=== PATIENT | male | born 1975 | race Caucasian/White ===

== ENCOUNTER 2020-01-02 20:24 | Emergency (ER) | payer OTHER ==
[2020-01-02] MEDS ORDERED: LORazepam 2 MG/ML SDV IVPUSH ONE ×2 (20:34→22:32)
[2020-01-02] MEDS ORDERED: Sodium Chloride 0.9% 10 ML Syringe FLUSH PRN (20:41)
[2020-01-02] MEDS ORDERED: Iopamidol 612 MG/ML 100 ML Bottle IV SCH (20:45)
[2020-01-02] MEDS ORDERED: Sodium Chloride 0.9% 80 ML IV SCH (20:45)
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
[2020-01-02] MEDS ORDERED: Ketorolac 30 MG/ML SDV IVPUSH ONE (23:03)
== END 2020-01-02 23:19 | disposition other institution (70) ==
LOC: JP.ED 20:24
DX: S27.0XXA Traumatic pneumothorax, initial encounter (principal); S22.31XA Fracture of one rib, right side, initial encounter for closed fracture; S42.111A Displaced fracture of body of scapula, right shoulder, initial encounter for closed fracture; S42.011A Anterior displaced fracture of sternal end of right clavicle, initial encounter for closed fracture; S42.021A Displaced fracture of shaft of right clavicle, initial encounter for closed fracture; S42.031A Displaced fracture of lateral end of right clavicle, initial encounter for closed fracture; S22.089A Unspecified fracture of T11-T12 vertebra, initial encounter for closed fracture; S50.311A Abrasion of right elbow, initial encounter; S70.211A Abrasion, right hip, initial encounter; Z88.5 Allergy status to narcotic agent; V29.9XXA Motorcycle rider (driver) (passenger) injured in unspecified traffic accident, initial encounter; Y92.410 Unspecified street and highway as the place of occurrence of the external cause
CPT/HCPCS: 36415; 71260; 72125; 74177; 80053; 85025; 96374; 96375; 96376; 99285; J1885; J2060; J7050; Q9967